=== PATIENT | female | born 1990 | race Asian ===

== ENCOUNTER 2019-03-14 01:27 | Emergency (ER) | payer SELFPAY ==
[2019-03-14 01:37] VITALS: BP 126/82
--- NOTE | 2019-03-14 02:59 | Emergency Department Report ---
ED Headache HPI - General Chief Complaint: Headache Stated Complaint: HEADACHE Time Seen by Provider: 03/14/19 02:39 Source: patient, family, RN/MD - History of Present Illness Initial Comments: Ms. Paz a 28-year-old female with history of migraine headaches who presents for frontal headache 2 days . Pain described as sharp and aching 3/10. Headache is in usual location and intensity and duration is headaches the past . there is no nausea /vomiting there is minimal photophobii Timing/Duration: 24 hours (2) Quality: moderate, achy Head Injury Location: frontal Recent Head Trauma: frequent headaches Modifying Factors: improves with: cold therapy, immobilization, medication, movement Associated Symptoms: denies: facial pain, fever/chills, loss of consciousness, nausea/vomiting, nasal congestion, nasal drainage, numbness in legs/feet, rash, seizures, stiff neck, weakness Home Medications: Ambulatory Orders Acetaminophen [Acetaminophen TAB] 1,000 mg PO Q6HR PRN #30 tablet 03/14/19 diphenhydrAMINE [Benadryl CAP] 25 mg PO Q6HR PRN #30 capsule 03/14/19 ED Review of Systems ROS: Stated complaint: HEADACHE Other details as noted in HPI Constitutional: denies: chills, fever Eyes: denies: eye pain, eye discharge, vision change ENT: denies: ear pain, throat pain Respiratory: denies: cough, shortness of breath, wheezing Cardiovascular: denies: chest pain, palpitations Endocrine: no symptoms reported Gastrointestinal: denies: abdominal pain, nausea, diarrhea Genitourinary: denies: urgency, dysuria, discharge Musculoskeletal: denies: back pain, joint swelling, arthralgia Skin: denies: rash, lesions Neurological: denies: headache, weakness, paresthesias Psychiatric: denies: anxiety, depression Hematological/Lymphatic: denies: easy bleeding, easy bruising ED Past Medical Hx - Past Medical History Previous Medical History?: No - Surgical History Past Surgical History?: No - Social History Smoking Status: Never Smoker Substance Use Type: Alcohol, Marijuana - Medications Home Medications: Home Medications Medication Instructions Recorded Confirmed Last Taken Type Acetaminophen [Acetaminophen TAB] 1,000 mg PO Q6HR PRN #30 tablet 03/14/19 Unknown Rx diphenhydrAMINE [Benadryl CAP] 25 mg PO Q6HR PRN #30 capsule 03/14/19 Unknown Rx ED Physical Exam - General Limitations: No Limitations General appearance: alert, in no apparent distress - Head Head exam: Present: atraumatic, normocephalic - Eye Eye exam: Present: normal appearance, PERRL, EOMI Pupils: Present: normal accommodation - ENT ENT exam: Present: mucous membranes moist - Neck Neck exam: Present: normal inspection, full ROM. Absent: tenderness, meningismus, lymphadenopathy, thyromegaly - Respiratory Respiratory exam: Present: normal lung sounds bilaterally. Absent: respiratory distress, wheezes, rales, rhonchi, chest wall tenderness - Cardiovascular Cardiovascular Exam: Present: regular rate, normal rhythm. Absent: systolic murmur, diastolic murmur, rubs, gallop - GI/Abdominal GI/Abdominal exam: Present: soft, normal bowel sounds. Absent: distended, tenderness, bruit, hernia - Rectal Rectal exam: Present: deferred - External exam: Present: other (deferred) - Extremities Exam Extremities exam: Present: normal inspection - Back Exam Back exam: Present: normal inspection, full ROM. Absent: tenderness, CVA tenderness (R), CVA tenderness (L), muscle spasm, vertebral tenderness, rash noted - Neurological Exam Neurological exam: Present: alert, oriented X3 - Psychiatric Psychiatric exam: Present: normal affect, normal mood - Skin Skin exam: Present: warm, dry, intact, normal color. Absent: rash ED Course Vital Signs 03/14/19 01:35 Temperature 98.0 F Pulse Rate 85 Respiratory 20 Rate Blood Pressure 126/82 O2 Sat by Pulse 94 Oximetry ED Medical Decision Making - Medical Decision Making headache, is resolved plan tylenol, benadryl , follow up with pcp in 2-3 days. return to emergency if symptoms worsen, pt verbalized agreement and understanding of discharge plan. Critical care attestation.: If time is entered above; I have spent that time in minutes in the direct care of this critically ill patient, excluding procedure time. ED Disposition Clinical Impression: Headache Qualifiers: Headache type: unspecified Headache chronicity pattern: acute headache Intractability: not intractable Qualified Code(s): R51 - Headache Disposition: DC- TO HOME OR SELFCARE Is pt being admited?: No Does the pt Need Aspirin: No Condition: Stable Instructions: Acute Headache (ED) Prescriptions: Acetaminophen [Acetaminophen TAB] 1,000 mg PO Q6HR PRN #30 tablet PRN Reason: Headache diphenhydrAMINE [Benadryl CAP] 25 mg PO Q6HR PRN #30 capsule PRN Reason: Headache Referrals: PRIMARY CARE, [Primary Care Provider] - 3-5 Days [facility] [Outside] - 3-5 Days Forms: Work/School Release Form(ED) Time of Disposition: 04:21
[2019-03-14] MEDS ORDERED: diphenhydrAMINE 25 MG CAP PO ONE (04:11)
[2019-03-14] MEDS ORDERED: ACETAMINOPHEN 500 MG TAB PO ONE (04:11)
== END 2019-03-14 04:37 | disposition home or self-care (01) ==
LOC: ED 01:27
DX: R51 Headache (principal); F12.10 Cannabis abuse, uncomplicated
CPT/HCPCS: 82962

== ENCOUNTER 2019-09-15 06:41 | Emergency (ER) | payer MEDICAID ==
[2019-09-15 07:40] LABS: Basophils % (Auto) 0.4 % (0.0-1.8); Eosinophils # (Auto) 0.1 K/mm3 (0.0-0.4); Eosinophils % (Auto) 2.1 % (0.0-4.3); Hematocrit 29.9 % (30.3-42.9); Hemoglobin 10.2 gm/dl (10.1-14.3); Lymphocytes # (Auto) 1.6 K/mm3 (1.2-5.4); Lymphocytes % (Auto) 26.1 % (13.4-35.0); Mean Corpuscular HGB Conc 34 % (30-34); Mean Corpuscular Volume 89 fl (79-97); Monocytes # (Auto) 0.4 K/mm3 (0.0-0.8); Monocytes % (Auto) 6.8 % (0.0-7.3); Platelet Count 247 K/mm3 (140-440); Red Blood Count 3.36 M/mm3 (3.65-5.03); Red Cell Distribution Width 14.5 % (13.2-15.2)
[2019-09-15] MEDS ORDERED: SODIUM CHLORIDE 0.9% 1000 ML 1,000 ML IV ONE (08:14)
[2019-09-15] MEDS ORDERED: KETOROLAC 30 MG/1 ML INJ IV ONE (08:14)
[2019-09-15] MEDS ORDERED: ONDANSETRON 4 MG/2 ML INJ IV ONE (08:14)
[2019-09-15] MEDS ORDERED: MORPHINE 4 MG/1 ML INJ IV ONE ×3 (08:14→10:23)
--- NOTE | 2019-09-15 08:14 | Emergency Department Report ---
ED Female HPI - General Chief complaint: Vaginal Bleeding Stated complaint: VAGINAL BLEEDING Time Seen by Provider: 09/15/19 07:11 Source: patient Mode of arrival: Stretcher Limitations: No Limitations - History of Present Illness Initial comments: Ms. Sharma is a 29-year-old female with history of recent miscarriage at 12 weeks gestation. This is her second . This is her second miscarriage. demise was evident according to ultrasound. Fetus did not have heartbeat. She was evaluated at [facility]. She was given ibuprofen. Products of conception spontaneously passed on August 30. She then had the sudden onset of pelvic pain severe vaginal bleeding this morning at 4 AM. She arrived per EMS. She currently has severe pelvic pain copious amount of vaginal bleeding. Severe 10 out of 10 intermittent pain. MD Complaint: vaginal bleeding, pelvic pain -: Sudden, This morning (0) Severity: severe Severity scale (0 -10): 10 Quality: cramping Consistency: intermittent Improves with: none Worsens with: none - Related Data Home Medications Medication Instructions Recorded Confirmed Last Taken Ibuprofen [Motrin 800 MG tab] 800 mg PO Q8H PRN 09/15/19 09/15/19 09/15/19 Previous Rx's Medication Instructions Recorded Last Taken Type HYDROcodone/APAP 5-325 [Morrison 1 each PO Q6HR PRN #15 tablet 09/15/19 Unknown Rx 5/325] Ibuprofen [Motrin 800 MG tab] 800 mg PO TID 4 Days #12 tablet 09/15/19 Unknown Rx Allergies Allergy/AdvReac Type Severity Reaction Status Date / Time No Known Allergies Allergy Unverified 09/15/19 07:00 ED Review of Systems ROS: Stated complaint: VAGINAL BLEEDING Other details as noted in HPI Comment: All other systems reviewed and negative Constitutional: denies: fever, malaise Respiratory: denies: cough Cardiovascular: denies: chest pain Gastrointestinal: abdominal pain Genitourinary: abnormal menses ED Past Medical Hx - Past Medical History Previous Medical History?: Yes Additional medical history: Vaginal bleeding. Morbid Obesity - Surgical History Past Surgical History?: Yes Additional Surgical History: D&C - Social History Smoking Status: Current Every Day Smoker Substance Use Type: None - Medications Home Medications: Home Medications Medication Instructions Recorded Confirmed Last Taken Type HYDROcodone/APAP 5-325 [Morrison 1 each PO Q6HR PRN #15 tablet 09/15/19 Unknown Rx 5/325] Ibuprofen [Motrin 800 MG tab] 800 mg PO Q8H PRN 09/15/19 09/15/19 09/15/19 History Ibuprofen [Motrin 800 MG tab] 800 mg PO TID 4 Days #12 tablet 09/15/19 Unknown Rx ED Physical Exam - General Limitations: No Limitations General appearance: alert, other (Appears in severe pain) - Head Head exam: Present: atraumatic, normocephalic - Eye Eye exam: Present: normal appearance - ENT ENT exam: Present: mucous membranes moist - Neck Neck exam: Present: normal inspection, full ROM - Respiratory Respiratory exam: Present: normal lung sounds bilaterally. Absent: respiratory distress, wheezes, rales, rhonchi - Cardiovascular Cardiovascular Exam: Present: regular rate, normal rhythm, normal heart sounds. Absent: systolic murmur, diastolic murmur, rubs, gallop - GI/Abdominal GI/Abdominal exam: Present: soft. Absent: distended, tenderness, guarding, rebound - Extremities Exam Extremities exam: Present: normal inspection - Back Exam Back exam: Present: normal inspection - Neurological Exam Neurological exam: Present: alert, oriented X3 - Psychiatric Psychiatric exam: Present: normal affect, normal mood - Skin Skin exam: Present: warm, dry, intact, normal color. Absent: rash ED Course Vital Signs 09/15/19 09/15/19 09/15/19 06:49 08:20 08:42 Temperature 97.4 F L Pulse Rate 104 H 104 H Respiratory 18 14 18 Rate Blood Pressure 115/66 Blood Pressure 102/56 [Left] O2 Sat by Pulse 100 98 100 Oximetry 09/15/19 08:47 Temperature Pulse Rate 87 Respiratory 20 Rate Blood Pressure Blood Pressure 101/58 [Left] O2 Sat by Pulse 100 Oximetry ED Medical Decision Making - Lab Data Result diagrams: 09/15/19 07:13 Laboratory Results - last 24 hr 09/15/19 09/15/19 09/15/19 07:13 07:13 07:13 WBC 6.3 RBC 3.36 L Hgb 10.2 Hct 29.9 L MCV 89 MCH 31 MCHC 34 RDW 14.5 Plt Count 247 Lymph % (Auto) 26.1 Bowie % (Auto) 6.8 Eos % (Auto) 2.1 Baso % (Auto) 0.4 Lymph # 1.6 Bowie # 0.4 Eos # 0.1 Baso # 0.0 Seg Neutrophils % 64.6 Seg Neutrophils # 4.0 HCG, Quant 2398 H Blood Type B POSITIVE - Radiology Data Radiology results: report reviewed Pelvic ultrasound: Endometrium is thickened but no IUP or retained products seen. - Medical Decision Making Spontaneous : Rh positive: No evidence of IUP or product of conception but there is a thickened endometrial strip. While in the emergency department patient passed several large blood clots prior to the ultrasound. Patient given Morrison ibuprofen for pain. Refer to her personal coremaker machine. Critical care attestation.: If time is entered above; I have spent that time in minutes in the direct care of this critically ill patient, excluding procedure time. ED Disposition Clinical Impression: Spontaneous Disposition: DC- TO HOME OR SELFCARE Is pt being admited?: No Does the pt Need Aspirin: No Condition: Stable Instructions: Spontaneous Miscarriage (ED) Additional Instructions: Please see your personal coremaker machine this week Prescriptions: Ibuprofen [Motrin 800 MG tab] 800 mg PO TID 4 Days #12 tablet HYDROcodone/APAP 5-325 [Morrison 5/325] 1 each PO Q6HR PRN #15 tablet PRN Reason: Pain Referrals: PRIMARY CARE, [Referring] - MERLY
--- NOTE | 2019-09-15 10:48 | Ultrasound Report ---
Endovaginal pelvic ultrasound INDICATION: Abnormal bleeding FINDINGS: The endometrium is thickened at 3.4 cm but no IUP or retained products seen. Both ovaries a re normal with a small amount of free fluid around the left ovary. No adnexal masses. Signer Name: Cosmo Her MD Signed: 09/15/2019 10:44 AM Workstation Name: [id number]
[2019-09-15] MEDS ORDERED: IBUPROFEN 800 MG TAB PO ONE (12:33)
[2019-09-15 13:39] VITALS: BP 106/60
== END 2019-09-15 14:01 | disposition home or self-care (01) ==
LOC: ED 06:41
DX: O03.9 Complete or unspecified spontaneous abortion without complication (principal); F17.200 Nicotine dependence, unspecified, uncomplicated; Z79.899 Other long term (current) drug therapy
CPT/HCPCS: 36415; 76830; 84702; 85025; 86900; 86901; 96374; 96375; 99284; J1885; J2270; J2405; J7030